=== PATIENT | male | born 1980 | race Hispanic/Latino ===

== ENCOUNTER 2019-01-11 07:16 | Emergency (ER) | payer BC ==
--- NOTE | 2019-01-11 08:13 | ER ---
Nurse's Notes [facility] Name: Maksim Osei Age: 38 yrs Sex: Male : 1980 Arrival Date: 01/11/2019 Time: 07:17 Bed 12 Private MD: Diagnosis: Other infective otitis externa, left ear Presentation: 01/11 07:34 Presenting complaint: Patient states: L ear pain x 2-3 days. Denies fever. Transition ss of care: patient was not received from another setting of care. Risk Assessment: Do you want to hurt yourself or someone else? Patient reports no desire to harm self or others. Initial Sepsis Screen: Does the patient meet any 2 criteria? No. Patient's initial sepsis screen is negative. Does the patient have a suspected source of infection? No. Patient's initial sepsis screen is negative. Care prior to arrival: None. 07:34 Method Of Arrival: Ambulatory ss 07:34 Acuity: MENG 5 ss Historical: - Allergies: 07:35 No Known Allergies; ss - Home Meds: 07:35 None [Active]; ss - PMHx: 07:35 None; ss - PSHx: 07:35 None; ss - Immunization history:: Adult Immunizations unknown. - Social history:: Smoking status: Patient uses tobacco products, smokes one-half pack cigarettes per day. - Ebola Screening: : Patient denies exposure to infectious person Patient denies travel to an Ebola-affected area in the 21 days before illness onset. Screenin:37 Abuse screen: Denies threats or abuse. Denies injuries from another. Nutritional ss screening: No deficits noted. Tuberculosis screening: Never had TB. Fall Risk None identified. Assessment: 07:37 General: Appears uncomfortable, Behavior is calm, cooperative, Denies fever, feeling ss ill, fatigue, chills. Pain: Complains of pain in left ear Pain currently is 10 out of 10 on a pain scale. Quality of pain is described as throbbing, Pain began 2-3 days ago. Is continuous. Neuro: Level of Consciousness is awake, alert, obeys commands, Oriented to person, place, time, situation, [place] [employer] are equal bilaterally Speech is normal, Facial symmetry appears normal, Pupils are. Cardiovascular: Capillary refill < 3 seconds is brisk in bilateral fingers Patient's skin is warm and dry. Respiratory: Respiratory effort is even, unlabored, Respiratory pattern is regular, symmetrical. GI: Patient currently denies abdominal pain, nausea, vomiting. EENT: Nares are clear Oral mucosa is moist. Throat is clear. Derm: Skin is intact, is healthy with good turgor, Skin is dry, Skin is pink, warm \T\ dry. normal. Musculoskeletal: Circulation, motion, and sensation intact. Range of motion: intact in all extremities, Swelling absent. Vital Signs: 07:35 BP 150 / 105; Pulse 85; Resp 16; Temp 98.4(TE); Pulse Ox 97% on R/A; Weight 104.33 kg; ss Height 5 ft. 6 in. (167.64 cm); Pain 10/10; 07:35 Body Mass Index 37.12 (104.33 kg, 167.64 cm) ED Course: 07:17 Patient arrived in ED. as 07:34 Triage completed. ss 07:35 Arm band placed on right wrist. ss 07:37 America Oden RN is Primary Nurse. ss 07:37 Patient has correct armband on for positive identification. Bed in low position. Call ss light in reach. 07:41 Prashant Bales PA is PHCP. jr8 07:41 Antoni Holbrook MD is Attending Physician. jr8 08:18 No provider procedures requiring assistance completed. Patient did not have IV access ss during this emergency room visit. Administered Medications: No medications were administered Outcome: 08:12 Discharge ordered by . jr8 08:18 Discharged to home ambulatory. ss 08:18 Condition: good 08:18 Discharge instructions given to patient, Instructed on discharge instructions, follow up and referral plans. medication usage, Demonstrated understanding of instructions, follow-up care, medications, Prescriptions given X 1. 08:19 Patient left the ED. ss Signatures: Batsheva Osei Shelby, RN RN Prashant Bales PA PA jr8
--- NOTE | 2019-01-11 08:13 | EDPHYS ---
Physician Documentation [facility] Name: Maksim Osei Age: 38 yrs Sex: Male : 1980 Arrival Date: 01/11/2019 Time: 07:17 Bed 12 Private MD: ED Physician Antoni Holbrook HPI: 01/11 08:05 This 38 yrs old Male presents to ER via Ambulatory with complaints of Ear Pain.[email or web address] 08:05 The patient presents with hearing loss, partial, pain, swelling. The complaints affect jr8 the left ear. Onset: The symptoms/episode began/occurred 2 day(s) ago. Modifying factors: The symptoms are alleviated by nothing, the symptoms are aggravated by pulling on ears, touching. Associated signs and symptoms: Pertinent negatives: fever, nausea, sinus trouble, sore throat, vertigo. Severity of symptoms: At their worst the symptoms were moderate in the emergency department the symptoms are unchanged despite home interventions. The patient has not experienced similar symptoms in the past. The patient has not recently seen a physician. Wears earplugs for work. Reports left ear pain and swelling x 2 days. Tried home ear wax removal system yesterday with no relief.. Historical: - Allergies: 07:35 No Known Allergies; ss - Home Meds: 07:35 None [Active]; ss - PMHx: 07:35 None; ss - PSHx: 07:35 None; ss - Immunization history:: Adult Immunizations unknown. - Social history:: Smoking status: Patient uses tobacco products, smokes one-half pack cigarettes per day. - Ebola Screening: : Patient denies exposure to infectious person Patient denies travel to an Ebola-affected area in the 21 days before illness onset. ROS: 08:05 Constitutional: Negative for fever, chills, and weight loss, Eyes: Negative for injury, jr8 pain, redness, and discharge, Neck: Negative for injury, pain, and swelling, Cardiovascular: Negative for chest pain, palpitations, and edema, Respiratory: Negative for shortness of breath, cough, wheezing, and pleuritic chest pain, Abdomen/GI: Negative for abdominal pain, nausea, vomiting, diarrhea, and constipation, MS/Extremity: Negative for injury and deformity, Skin: Negative for injury, rash, and discoloration, Neuro: Negative for headache, weakness, numbness, tingling, and seizure. 08:05 ENT: Positive for ear pain, hearing loss, Negative for rhinorrhea, sinus congestion, sore throat. Exam: 08:05 Constitutional: This is a well developed, well nourished patient who is awake, alert, jr8 and in no acute distress. Head/Face: Normocephalic, atraumatic. Eyes: Pupils equal round and reactive to light, extra-ocular motions intact. Lids and lashes normal. Conjunctiva and sclera are non-icteric and not injected. Cornea within normal limits. Periorbital areas with no swelling, redness, or edema. Cardiovascular: Regular rate and rhythm with a normal S1 and S2. No pulse deficits. Respiratory: Lungs have equal breath sounds bilaterally, clear to auscultation and percussion. No rales, rhonchi or wheezes noted. No increased work of breathing, no retractions or nasal flaring. Abdomen/GI: Soft, non-tender, with normal bowel sounds. No distension or tympany. No guarding or rebound. No evidence of tenderness throughout. Skin: Warm, dry with normal turgor. Normal color with no rashes, no lesions, and no evidence of cellulitis. Neuro: Awake and alert, GCS 15, oriented to person, place, time, and situation. Normal gait. 08:05 ENT: External ear(s): pain with movement, of the pinna of left ear, swelling, of the pinna of left ear, Ear canal(s): purulent discharge, in the left canal, swelling, of the left canal, TM's: not visable, because of discharge, Examination of the other ear shows no obvious abnormality, Nose: is normal, Mouth: is normal, Posterior pharynx: is normal, no erythema, no exudate, no peritonsilar mass. Vital Signs: 07:35 BP 150 / 105; Pulse 85; Resp 16; Temp 98.4(TE); Pulse Ox 97% on R/A; Weight 104.33 kg; ss Height 5 ft. 6 in. (167.64 cm); Pain 10/10; 07:35 Body Mass Index 37.12 (104.33 kg, 167.64 cm) ss MDM: 07:41 Patient medically screened. [facility] 08:05 Differential diagnosis: otitis media, otitis externa, ruptured TM, foreign body, acute jr8 otalgia, cerumen impaction. Data reviewed: vital signs, nurses notes, and as a result, I will discharge patient. Data interpreted: Pulse oximetry: on room air is 99 %. Interpretation: normal. Counseling: I had a detailed discussion with the patient and/or guardian regarding: the historical points, exam findings, and any diagnostic results supporting the discharge/admit diagnosis, the need for outpatient follow up, to return to the emergency department if symptoms worsen or persist or if there are any questions or concerns that arise at home. ED course: Discussed diagnosis. Instructed patient to use ear drops as prescribed and do not use earplugs or swim for one week. Verbalized understanding. Administered Medications: No medications were administered Disposition: 14:19 Co-signature as Attending Physician, Antoni Holbrook MD I agree with the assessment and kdr plan of care. Disposition: 01/11/19 08:12 Discharged to Home. Impression: Other infective otitis externa, left ear. - Condition is Stable. - Discharge Instructions: Ear Drops, Adult, Otitis Externa. - Prescriptions for Ciprodex 0.3- 0.1 % Otic Drops, Suspension - instill 4 drops by OTIC route every 12 hours for 7 days left ear, for ears ONLY; 1 Container. - Medication Reconciliation Form, Thank You Letter, Antibiotic Education, Prescription Opioid Use form. - Follow up: Private Physician; When: 2 - 3 days; Reason: Recheck today's complaints, Re-evaluation by your physician. - Problem is new. - Symptoms have improved. Signatures: Antoni Holbrook MD MD [facility] America Oden RN RN Prashant Bales PA PA jr8 Corrections: (The following items were deleted from the chart) : 08:12 01/11/2019 08:12 Discharged to Home. Impression: Other infective otitis externa, ss left ear. Condition is Stable. Forms are Medication Reconciliation Form, Thank You Letter, Antibiotic Education, Prescription Opioid Use. Follow up: Private Physician; When: 2 - 3 days; Reason: Recheck today's complaints, Re-evaluation by your physician. Problem is new. Symptoms have improved. jr8
== END 2019-01-11 08:19 | disposition home or self-care (01) ==
LOC: ER 07:16
DX: H60.392 Other infective otitis externa, left ear (principal); F17.210 Nicotine dependence, cigarettes, uncomplicated
CPT/HCPCS: 99282